=== PATIENT | male | born 1980 | race African-American/Black ===

== ENCOUNTER 2021-05-04 19:56 | Emergency (ER) | payer MEDICAID ==
[~2021-05-04] VITALS: Ht 180.3 cm; Wt 98.0 kg
[2021-05-04 20:02] VITALS: BP 131/88
[2021-05-04] MEDS ORDERED: ACETAMINOPHEN 325MG TABLET PO ONE (23:00)
[2021-05-04] MEDS ORDERED: CYCLOBENZAPRINE 10MG TABLET PO ONE (23:00)
[2021-05-04] MEDS ORDERED: ACET325C7 PO (23:08)
[2021-05-04] MEDS ORDERED: CYCL10TA7 MT (23:08)
== END 2021-05-04 23:43 | disposition home or self-care (01) ==
LOC: ER 19:56
DX: S16.1XXA Strain of muscle, fascia and tendon at neck level, initial encounter (principal); S39.012A Strain of muscle, fascia and tendon of lower back, initial encounter; V47.5XXA Car driver injured in collision with fixed or stationary object in traffic accident, initial encounter; Y93.89 Activity, other specified; Y92.488 Other paved roadways as the place of occurrence of the external cause; Z86.718 Personal history of other venous thrombosis and embolism; Z79.01 Long term (current) use of anticoagulants
CPT/HCPCS: 99283